=== PATIENT | male | born 1970 | race Caucasian/White ===

== ENCOUNTER 2019-01-19 09:48 | Inpatient (IN) | payer BC ==
[2019-01-19] MEDS ORDERED: Aspirin 81 MG Tab.Chew PO ONE (09:52)
[2019-01-19] MEDS ORDERED: Sodium Chloride 0.9% 2.5 ML Syringe FLUSH PRN (09:52)
[2019-01-19] MEDS ORDERED: Sodium Chloride 0.9% 10 ML Syringe FLUSH PRN (09:52)
[2019-01-19] MEDS ORDERED: Diltiazem 25 MG/5 ML SDV IVPUSH ONE ×4 (09:52→13:33)
--- NOTE | 2019-01-19 10:16 | CR ---
EXAMINATION: Portable chest radiograph. HISTORY: Shortness of breath. FINDINGS: The trachea is midline. The heart is borderline in size for technique. The cardiomediastinal silhouette is within normal limits. Mild right basilar infiltrate. No pleural effusion or pneumothorax. Osseous structures appear unremarkable. IMPRESSION: 1. Borderline cardiomegaly. 2. Mild right basilar infiltrate.
--- NOTE | 2019-01-19 10:17 | EDM.PDOC ---
ED HPI GENERAL MEDICAL PROBLEM - General Chief Complaint: Cardiovascular Problem Stated Complaint: CHEST PAIN Time Seen by Provider: 01/19/19 09:59 Source of Information: Reports: Patient History Limitations: Reports: No Limitations - History of Present Illness INITIAL COMMENTS - FREE TEXT/NARRATIVE: History of present illness: []Patient has a history of asthma and for the past 2-3 days he has feel like his asthma has worsened. Today he was going up and down stairs and felt more short of breath and it did not feel like his asthma. To clinic today and they found him to be in atrial fibrillation with a fast heart rate and sent him to the emergency room. Patient denies any chest pain, he has had fevers and a cough and his was recently diagnosed with a respiratory infection. Review of systems: As per history of present illness and below otherwise all systems reviewed and negative. Past medical history: As per history of present illness and as reviewed below otherwise noncontributory. Surgical history: As per history of present illness and as reviewed below otherwise noncontributory. Social history: No reported history of drug or alcohol abuse. Family history: As per history of present illness and as reviewed below otherwise noncontributory. Physical exam: General: Well developed, well nourished in NAD HEENT: Atraumatic, normocephalic, pupils reactive, negative for conjunctival pallor or scleral icterus, mucous membranes moist, throat clear, neck supple, nontender, trachea midline. Lungs: Clear to auscultation, breath sounds equal bilaterally, chest nontender. Heart: S1S2, irregularly irregular, negative for clicks, rubs, or JVD. No peripheral edema Abdomen: NABS, Soft, nondistended, nontender. Negative for masses or hepatosplenomegaly. Negative for costovertebral tenderness. Pelvis: Stable nontender. Genitourinary: Deferred. Rectal: Deferred. Extremities: Atraumatic, negative for cords or calf pain. Neurovascular unremarkable. Neuro: Awake, alert, oriented. Cranial nerves II through XII unremarkable. Cerebellum unremarkable. Motor and sensory unremarkable throughout. Exam nonfocal. Skin:warm and dry Diagnostics: EKG, CBC, chemistry, troponin, BNP, chest x-ray Therapeutics: Diltiazem 20 mg IV 2 boluses and diltiazem drip ED Course: Patient remained stable in A. fib Impression: Atrial fibrillation with rapid ventricular rate Prescriptions: None Plan: Admit to ICU on diltiazem drip to the hospitalist service Definitive disposition and diagnosis as appropriate pending reevaluation and review of above. - Related Data Allergies Allergy/AdvReac Type Severity Reaction Status Date / Time No Known Allergies Allergy Verified 01/19/19 09:54 Home Meds: Home Meds Aspirin 81 mg PO DAILY 10/03/15 [History] Lisinopril 40 mg PO DAILY 10/03/15 [History] Pantoprazole 40 mg PO DAILY 10/03/15 [History] amLODIPine Besylate [Amlodipine Besylate] 10 mg PO ACBREAKFAST 10/03/15 [History ] atorvaSTATin [Lipitor] 20 mg PO BEDTIME 10/03/15 [History] hydroCHLOROthiazide [Hydrochlorothiazide] 25 mg PO DAILY 10/03/15 [History] metFORMIN [Glucophage XR] 1,000 mg PO BIDMEALS 10/03/15 [History] Albuterol Sulfate [Albuterol Sulfate Hfa] 8.5 gm IH Q4H PRN 01/19/19 [History] Cetirizine [ZyrTEC] 10 mg PO DAILY 01/19/19 [History] Past Medical History HEENT History: Reports: None Cardiovascular History: Reports: High Cholesterol, Hypertension Respiratory History: Reports: Asthma, Other (See Below) Other Respiratory History: Past hx: asthma, no problems for several years. REports 10 yr history of Chewing tobacco use, current 1 can every 2-3 days Gastrointestinal History: Reports: Other (See Below) Other Gastrointestinal History: heartburn Genitourinary History: Reports: None Musculoskeletal History: Reports: Other (See Below) Other Musculoskeletal History: Current laceration Left index finger Neurological History: Reports: None Psychiatric History: Reports: None Endocrine/Metabolic History: Reports: Diabetes, Type II, Obesity/BMI 30+ Hematologic History: Reports: None Immunologic History: Reports: None Oncologic (Cancer) History: Reports: None Dermatologic History: Reports: None - Infectious Disease History Infectious Disease History: Reports: Chicken Pox - Past Surgical History Head Surgeries/Procedures: Reports: None HEENT Surgical History: Reports: None Cardiovascular Surgical History: Reports: None Respiratory Surgical History: Reports: None GI Surgical History: Reports: Hernia Repair/Other Male Surgical History: Reports: None Endocrine Surgical History: Reports: None Neurological Surgical History: Reports: None Musculoskeletal Surgical History: Reports: None Oncologic Surgical History: Reports: None Dermatological Surgical History: Reports: None Social & Family History - Family History Family Medical History: Noncontributory - Tobacco Use Smoking Status *Q: Never Smoker Second Hand Smoke Exposure: No - Caffeine Use Caffeine Use: Reports: Coffee, Soda - Recreational Drug Use Recreational Drug Use: No ED ROS GENERAL - Review of Systems Review Of Systems: ROS reveals no pertinent complaints other than HPI. ED EXAM, GENERAL - Physical Exam Exam: See Below (See history of present illness) Course - Vital Signs Last Recorded V/S: Last Vital Signs Temp 97.0 F 01/19/19 09:49 Pulse 138 H 01/19/19 12:28 Resp 18 01/19/19 12:28 BP 145/63 H 01/19/19 12:28 Pulse Ox 95 01/19/19 12:28 - Orders/Labs/Meds Orders: Active Orders 24 hr Category Date Time Status Patient Status [ADT] Stat ADT 01/19/19 11:36 Active EKG Documentation Completion [RC] STAT Care 01/19/19 09:51 Active Diltiazem [Cardizem] 100 mg Med 01/19/19 11:15 Active Sodium Chloride 0.9% [Normal Saline] 100 ml IV NOW Sodium Chloride 0.9% [Normal Saline] 1,000 ml Med 01/19/19 11:30 Active IV ASDIRECTED Sodium Chloride 0.9% [Saline Flush] Med 01/19/19 09:52 Active 10 ml FLUSH ASDIRECTED PRN Sodium Chloride 0.9% [Saline Flush] Med 01/19/19 09:52 Active 2.5 ml FLUSH ASDIRECTED PRN Saline Lock Insert [OM.PC] Stat Oth 01/19/19 09:51 Ordered Medication Orders Albuterol/Ipratropium (Duoneb 3.0-0.5 Mg/3 Ml) 3 ml NEB Q4HRRT PRN PRN Reason: Shortness Of Breath/wheezing Last Admin: 01/19/19 15:11 Dose: 3 ml Apixaban (Eliquis) 5 mg PO BID LAUREN Aspirin (Aspirin) 81 mg PO DAILY LAUREN Atorvastatin Calcium (Lipitor) 20 mg PO BEDTIME LAUREN Cetirizine HCl (Zyrtec) 10 mg PO DAILY LAUREN Furosemide (Lasix) 40 mg IVPUSH NOW ONE Stop: 01/19/19 17:18 Diltiazem HCl 100 mg/ Sodium (Chloride) 100 mls @ 5 mls/hr IV NOW ONE; Protocol Stop: 01/20/19 07:14 Last Titration: 01/19/19 13:33 Dose: 15 mg/hr, 15 mls/hr Titration: 01/19/19 12:28 Dose: 10 mg/hr, 10 mls/hr Admin: 01/19/19 11:19 Dose: 5 mg/hr, 5 mls/hr Sodium Chloride (Normal Saline) 1,000 mls @ 50 mls/hr IV ASDIRECTED LAUREN Last Admin: 01/19/19 11:22 Dose: 50 mls/hr Levofloxacin/Dextrose 750 mg/ (Premix) 150 mls @ 100 mls/hr IV Q24H LAUREN Last Admin: 01/19/19 15:26 Dose: 100 mls/hr Magnesium Sulfate 2 gm/ Premix 50 mls @ 25 mls/hr IV ONETIME ONE Stop: 01/19/19 18:49 Insulin Aspart (Novolog) 0 unit SUBCUT TIDAC [facility]; Protocol Pantoprazole Sodium (Protonix) 40 mg PO DAILY [facility] Sodium Chloride (Saline Flush) 10 ml FLUSH ASDIRECTED PRN PRN Reason: Keep Vein Open Sodium Chloride (Saline Flush) 2.5 ml FLUSH ASDIRECTED PRN PRN Reason: Keep Vein Open Labs: Laboratory Tests 01/19/19 01/19/19 01/19/19 Range/Units 09:50 09:50 09:50 WBC 6.23 (4.0-11.0) K/uL RBC 4.92 (4.50-5.90) M/uL Hgb 15.6 (13.0-17.0) g/dL Hct 45.7 (38.0-50.0) % MCV 92.9 (80.0-98.0) fL MCH 31.7 (27.0-32.0) pg MCHC 34.1 (31.0-37.0) g/dL RDW Std Deviation 46.8 (28.0-62.0) fl RDW Coeff of Jazmin 14 (11.0-15.0) % Plt Count 208 (150-400) K/uL MPV 11.20 (7.40-12.00) fL Neut % (Auto) 70.5 (48.0-80.0) % Lymph % (Auto) 14.6 L (16.0-40.0) % [place] % (Auto) 9.5 (0.0-15.0) % Eos % (Auto) 4.3 (0.0-7.0) % Baso % (Auto) 1.1 (0.0-1.5) % Neut # (Auto) 4.4 (1.4-5.7) K/uL Lymph # (Auto) 0.9 (0.6-2.4) K/uL [place] # (Auto) 0.6 (0.0-0.8) K/uL Eos # (Auto) 0.3 (0.0-0.7) K/uL Baso # (Auto) 0.1 (0.0-0.1) K/uL Nucleated RBC % 0.0 /100WBC Nucleated RBCs # 0 K/uL Sodium 139 (136-148) mmol/L Potassium 4.2 (3.5-5.1) mmol/L Chloride 101 (98-107) mmol/L Carbon Dioxide 25.3 (21.0-32.0) mmol/L BUN 11 (7.0-18.0) mg/dL Creatinine 1.1 (0.8-1.3) mg/dL Est Cr Clr Drug Dosing 83.02 mL/min Estimated GFR (MDRD) > 60.0 ml/min Glucose 189 H (74-106) mg/dL Calcium 9.4 (8.5-10.1) mg/dL Magnesium (1.8-2.4) mg/dL Total Bilirubin 1.6 H (0.2-1.0) mg/dL AST 30 (15-37) IU/L ALT 67 H (14-63) IU/L Alkaline Phosphatase 40 L (46-116) U/L Troponin I < 0.050 (0.000-0.056) ng/mL B-Natriuretic Peptide 190 H (<100) PG/ML Total Protein 7.4 (6.4-8.2) g/dL Albumin 4.2 (3.4-5.0) g/dL Globulin 3.2 (2.6-4.0) g/dL Albumin/Globulin Ratio 1.3 (0.9-1.6) TSH 3rd Generation (0.36-3.74) uIU/mL 01/19/19 Range/Units 09:50 WBC (4.0-11.0) K/uL RBC (4.50-5.90) M/uL Hgb (13.0-17.0) g/dL Hct (38.0-50.0) % MCV (80.0-98.0) fL MCH (27.0-32.0) pg MCHC (31.0-37.0) g/dL RDW Std Deviation (28.0-62.0) fl RDW Coeff of Jazmin (11.0-15.0) % Plt Count (150-400) K/uL MPV (7.40-12.00) fL Neut % (Auto) (48.0-80.0) % Lymph % (Auto) (16.0-40.0) % [place] % (Auto) (0.0-15.0) % Eos % (Auto) (0.0-7.0) % Baso % (Auto) (0.0-1.5) % Neut # (Auto) (1.4-5.7) K/uL Lymph # (Auto) (0.6-2.4) K/uL [place] # (Auto) (0.0-0.8) K/uL Eos # (Auto) (0.0-0.7) K/uL Baso # (Auto) (0.0-0.1) K/uL Nucleated RBC % /100WBC Nucleated RBCs # K/uL Sodium (136-148) mmol/L Potassium (3.5-5.1) mmol/L Chloride (98-107) mmol/L Carbon Dioxide (21.0-32.0) mmol/L BUN (7.0-18.0) mg/dL Creatinine (0.8-1.3) mg/dL Est Cr Clr Drug Dosing mL/min Estimated GFR (MDRD) ml/min Glucose (74-106) mg/dL Calcium (8.5-10.1) mg/dL Magnesium 1.7 L (1.8-2.4) mg/dL Total Bilirubin (0.2-1.0) mg/dL AST (15-37) IU/L ALT (14-63) IU/L Alkaline Phosphatase (46-116) U/L Troponin I (0.000-0.056) ng/mL B-Natriuretic Peptide (<100) PG/ML Total Protein (6.4-8.2) g/dL Albumin (3.4-5.0) g/dL Globulin (2.6-4.0) g/dL Albumin/Globulin Ratio (0.9-1.6) TSH 3rd Generation 1.68 (0.36-3.74) uIU/mL Meds: Medications Generic Name Dose Route Start Last Admin Trade Name Freq PRN Reason Stop Dose Admin Albuterol/Ipratropium 3 ml 01/19/19 14:17 01/19/19 15:11 Duoneb 3.0-0.5 Mg/3 Ml NEB 3 ml Q4HRRT PRN Administration Shortness Of Breath/wheezing Apixaban 5 mg 01/19/19 17:30 Eliquis PO BID [facility] Aspirin 81 mg 01/20/19 09:00 Aspirin PO DAILY [facility] Atorvastatin Calcium 20 mg 01/19/19 21:00 Lipitor PO BEDTIME [facility] Cetirizine HCl 10 mg 01/20/19 09:00 Zyrtec PO DAILY [facility] Furosemide 40 mg 01/19/19 17:17 Lasix IVPUSH 01/19/19 17:18 NOW ONE Diltiazem HCl 100 mg/ Sodium 100 mls @ 5 mls/hr 01/19/19 11:15 01/19/19 13:33 Chloride IV 01/20/19 07:14 15 mg/hr NOW ONE 15 mls/hr Titration Protocol 5 MG/HR Sodium Chloride 1,000 mls @ 50 mls/hr 01/19/19 11:30 01/19/19 11:22 Normal Saline IV 50 mls/hr ASDIRECTED LAUREN Administration Levofloxacin/Dextrose 750 mg/ 150 mls @ 100 mls/hr 01/19/19 14:00 01/19/19 15 :26 Premix IV 100 mls/hr Q24H LAUREN Administration Magnesium Sulfate 2 gm/ Premix 50 mls @ 25 mls/hr 01/19/19 16:50 IV 01/19/19 18:49 ONETIME ONE Insulin Aspart 0 unit 01/19/19 17:00 Novolog SUBCUT TIDAC [facility] Protocol Pantoprazole Sodium 40 mg 01/20/19 09:00 Protonix PO DAILY [facility] Sodium Chloride 10 ml 01/19/19 09:52 Saline Flush FLUSH ASDIRECTED PRN Keep Vein Open Sodium Chloride 2.5 ml 01/19/19 09:52 Saline Flush FLUSH ASDIRECTED PRN Keep Vein Open Discontinued Medications Generic Name Dose Route Start Last Admin Trade Name Freq PRN Reason Stop Dose Admin Amlodipine Besylate 10 mg 01/20/19 07:30 Norvasc PO ACBREAKFAST [facility] Aspirin 324 mg 01/19/19 09:52 01/19/19 10:00 Aspirin PO 01/19/19 09:53 324 mg ONETIME ONE Administration Diltiazem HCl 20 mg 01/19/19 09:52 01/19/19 10:00 Diltiazem IVPUSH 01/19/19 09:53 20 mg ONETIME ONE Administration Diltiazem HCl 20 mg 01/19/19 10:21 01/19/19 10:26 Diltiazem IVPUSH 01/19/19 10:22 20 mg ONETIME ONE Administration Diltiazem HCl Confirm 01/19/19 12:23 Diltiazem Administered 01/19/19 12:24 Dose 25 mg .ROUTE .STK-MED ONE Diltiazem HCl 5 mg 01/19/19 12:26 01/19/19 12:27 Diltiazem IVPUSH 01/19/19 12:27 5 mg ONETIME ONE Administration Diltiazem HCl 5 mg 01/19/19 13:33 01/19/19 13:47 Diltiazem IVPUSH 01/19/19 13:34 5 mg ONETIME ONE Administration Heparin Sodium (Porcine) 5,000 units 01/19/19 14:30 01/19/19 15:26 Heparin Sodium SUBCUT 5,000 units Q8H [facility] Administration Hydrochlorothiazide 25 mg 01/20/19 09:00 Hydrochlorothiazide PO DAILY [facility] Diltiazem HCl 125 mg/ Sodium 125 mls @ 5 mls/hr 01/19/19 11:03 Chloride IV 01/20/19 12:02 NOW ONE Protocol 5 MG/HR Lisinopril 40 mg 01/20/19 09:00 Prinivil PO DAILY [facility] Metformin HCl 1,000 mg 01/19/19 17:00 Glucophage Xr PO BIDMEALS LAUREN Departure - Departure Time of Disposition: 12:45 Disposition: Admitted As Inpatient 67 Condition: Good Clinical Impression: Atrial fibrillation with RVR - My Orders Last 24 Hours: My Active Orders 01/19/19 09:51 EKG Documentation Completion [RC] STAT Saline Lock Insert [OM.PC] Stat 01/19/19 09:52 Sodium Chloride 0.9% [Saline Flush] 10 ml FLUSH ASDIRECTED PRN Sodium Chloride 0.9% [Saline Flush] 2.5 ml FLUSH ASDIRECTED PRN 01/19/19 11:15 Diltiazem [Cardizem] 100 mg Sodium Chloride 0.9% [Normal Saline] 100 ml IV NOW 01/19/19 11:30 Sodium Chloride 0.9% [Normal Saline] 1,000 ml IV ASDIRECTED 01/19/19 11:36 Patient Status [ADT] Stat - Assessment/Plan Last 24 Hours: My Active Orders 01/19/19 09:51 EKG Documentation Completion [RC] STAT Saline Lock Insert [OM.PC] Stat 01/19/19 09:52 Sodium Chloride 0.9% [Saline Flush] 10 ml FLUSH ASDIRECTED PRN Sodium Chloride 0.9% [Saline Flush] 2.5 ml FLUSH ASDIRECTED PRN 01/19/19 11:15 Diltiazem [Cardizem] 100 mg Sodium Chloride 0.9% [Normal Saline] 100 ml IV NOW 01/19/19 11:30 Sodium Chloride 0.9% [Normal Saline] 1,000 ml IV ASDIRECTED 01/19/19 11:36 Patient Status [ADT] Stat
[2019-01-19 10:38] LABS: CHLORIDE,CL 101 mmol/L (98-107); SODIUM,NA 139 mmol/L (136-148)
[2019-01-19] MEDS ORDERED: Diltiazem 125 MG in Sodium Chloride 0.9% 100 ML IV ONE (11:03)
[2019-01-19] MEDS ORDERED: Diltiazem 100 MG in Sodium Chloride 0.9% 100 ML IV ONE (11:15)
[2019-01-19] MEDS ORDERED: Sodium Chloride 0.9% 1,000 ML IV SCH (11:30)
[2019-01-19] MEDS ORDERED: Diltiazem 25 MG/5 ML SDV ONE (12:23)
[2019-01-19] MEDS ORDERED: Heparin Sodium 5,000 Units/ML Vial SUBCUT SCH (14:30)
--- NOTE | 2019-01-19 14:42 | PCM.HP ---
H&P History of Present Illness - General Date of Service: 01/19/19 Admit Problem/Dx: Admission Diagnosis/Problem Admission Diagnosis/Problem Atrial fibrillation with rapid ventricular response Source of Information: Patient History Limitations: Reports: No Limitations - History of Present Illness Initial Comments - Free Text/Narative: 48M history of asthma, HTN, HLD, T2DM that presented to the ER with a chief complaint of shortness of breath. Patient tells me that for the past 3-4 weeks, he's been dealing with what he thought was sinus congestion. This slowly evolved over the past week into him thinking his asthma was acting up. He went to a walk in clinic today earlier when he was found to have an elevated heart rate and sent to the ER. He was found to be in A. Fib w/ RVR. He has no history of this. He denies chest pain or palpitations. He endorses a dry cough. No fever. No history of thyroid or drug abuse. He denies tobacco use. - Related Data Allergies/Adverse Reactions: Allergies Allergy/AdvReac Type Severity Reaction Status Date / Time No Known Allergies Allergy Verified 01/19/19 09:54 Home Medications: Home Meds Aspirin 81 mg PO DAILY 10/03/15 [History] Lisinopril 40 mg PO DAILY 10/03/15 [History] Pantoprazole 40 mg PO DAILY 10/03/15 [History] amLODIPine Besylate [Amlodipine Besylate] 10 mg PO ACBREAKFAST 10/03/15 [History ] atorvaSTATin [Lipitor] 20 mg PO BEDTIME 10/03/15 [History] hydroCHLOROthiazide [Hydrochlorothiazide] 25 mg PO DAILY 10/03/15 [History] metFORMIN [Glucophage XR] 1,000 mg PO BIDMEALS 10/03/15 [History] Albuterol Sulfate [Albuterol Sulfate Hfa] 8.5 gm IH Q4H PRN 01/19/19 [History] Cetirizine [ZyrTEC] 10 mg PO DAILY 01/19/19 [History] Past Medical History HEENT History: Reports: Impaired Vision Cardiovascular History: Reports: High Cholesterol, Hypertension Respiratory History: Reports: Asthma, Other (See Below) Other Respiratory History: Past hx: asthma, no problems for several years. REports 10 yr history of Chewing tobacco use, current 1 can every 2-3 days Gastrointestinal History: Reports: Other (See Below) Other Gastrointestinal History: heartburn Genitourinary History: Reports: None Musculoskeletal History: Reports: Other (See Below) Other Musculoskeletal History: left index finger flexor tendon sever and repair Neurological History: Reports: None Psychiatric History: Reports: None Endocrine/Metabolic History: Reports: Diabetes, Type II, Obesity/BMI 30+ Hematologic History: Reports: None Immunologic History: Reports: None Oncologic (Cancer) History: Reports: None Dermatologic History: Reports: None - Infectious Disease History Infectious Disease History: Reports: Chicken Pox - Past Surgical History Head Surgeries/Procedures: Reports: None Cardiovascular Surgical History: Reports: None Respiratory Surgical History: Reports: None GI Surgical History: Reports: Hernia Repair/Other Male Surgical History: Reports: None Endocrine Surgical History: Reports: None Neurological Surgical History: Reports: None Musculoskeletal Surgical History: Reports: None Oncologic Surgical History: Reports: None Dermatological Surgical History: Reports: None Social & Family History - Family History Family Medical History: Noncontributory - Tobacco Use Smoking Status *Q: Light Tobacco Smoker Years of Tobacco use: 10 Packs/Tins Daily: 0.5 Used Tobacco, but Quit: No Second Hand Smoke Exposure: No - Caffeine Use Caffeine Use: Reports: Coffee Caffeine Use Comment: Coffee or pop - Recreational Drug Use Recreational Drug Use: No H&P Review of Systems - Review of Systems: Review Of Systems: ROS reveals no pertinent complaints other than HPI. Exam - Exam Exam: See Below - Vital Signs Vital Signs: Last Vital Signs Temp 36.1 C 01/19/19 09:49 Pulse 138 H 01/19/19 12:28 Resp 18 01/19/19 12:28 BP 145/63 H 01/19/19 12:28 Pulse Ox 95 01/19/19 12:28 Weight: 117.208 kg - Exam General: Alert, Oriented, 4 HEENT: PERRLA, Hearing Intact, Mucosa Moist & [place], Nares Patent, Normal Nasal Septum, Posterior Pharynx Clear, Conjunctiva Clear, EOMI, EACs Clear, TMs Clear Neck: Supple, Trachea Midline, 2 Lungs: Other (mild expiratory wheezing in L lung) Cardiovascular: Irregular Rhythm, Tachycardia GI/Abdominal Exam: Normal Bowel Sounds, Soft, Non-Tender, No Organomegaly, No Distention, No Abnormal Bruit, No Mass, Pelvis Stable Extremities: Normal Inspection, Normal Range of Motion, Non-Tender, Normal Capillary Refill, Other (trace pedal edema) Peripheral Pulses: 2+: Dorsalis Pedis (L), Dorsalis Pedis (R) Skin: Warm DTR: 2+: Achilles (L), Achilles (R) Psychiatric: Alert, Normal Affect, Normal Mood - Patient Data Lab Results Last 24 hrs: Laboratory Results - last 24 hr 01/19/19 01/19/19 01/19/19 Range/Units 09:50 09:50 09:50 WBC 6.23 (4.0-11.0) K/uL RBC 4.92 (4.50-5.90) M/uL Hgb 15.6 (13.0-17.0) g/dL Hct 45.7 (38.0-50.0) % MCV 92.9 (80.0-98.0) fL MCH 31.7 (27.0-32.0) pg MCHC 34.1 (31.0-37.0) g/dL RDW Std Deviation 46.8 (28.0-62.0) fl RDW Coeff of Jazmin 14 (11.0-15.0) % Plt Count 208 (150-400) K/uL MPV 11.20 (7.40-12.00) fL Neut % (Auto) 70.5 (48.0-80.0) % Lymph % (Auto) 14.6 L (16.0-40.0) % [place] % (Auto) 9.5 (0.0-15.0) % Eos % (Auto) 4.3 (0.0-7.0) % Baso % (Auto) 1.1 (0.0-1.5) % Neut # (Auto) 4.4 (1.4-5.7) K/uL Lymph # (Auto) 0.9 (0.6-2.4) K/uL [place] # (Auto) 0.6 (0.0-0.8) K/uL Eos # (Auto) 0.3 (0.0-0.7) K/uL Baso # (Auto) 0.1 (0.0-0.1) K/uL Nucleated RBC % 0.0 /100WBC Nucleated RBCs # 0 K/uL Sodium 139 (136-148) mmol/L Potassium 4.2 (3.5-5.1) mmol/L Chloride 101 (98-107) mmol/L Carbon Dioxide 25.3 (21.0-32.0) mmol/L BUN 11 (7.0-18.0) mg/dL Creatinine 1.1 (0.8-1.3) mg/dL Est Cr Clr Drug Dosing 83.02 mL/min Estimated GFR (MDRD) > 60.0 ml/min Glucose 189 H (74-106) mg/dL Calcium 9.4 (8.5-10.1) mg/dL Total Bilirubin 1.6 H (0.2-1.0) mg/dL AST 30 (15-37) IU/L ALT 67 H (14-63) IU/L Alkaline Phosphatase 40 L (46-116) U/L Troponin I < 0.050 (0.000-0.056) ng/mL B-Natriuretic Peptide 190 H (<100) PG/ML Total Protein 7.4 (6.4-8.2) g/dL Albumin 4.2 (3.4-5.0) g/dL Globulin 3.2 (2.6-4.0) g/dL Albumin/Globulin Ratio 1.3 (0.9-1.6) Result Diagrams: 01/19/19 09:50 01/19/19 09:50 Problem List Initiated/Reviewed/Updated: Yes Orders Last 24hrs: Active Orders 24 hr Category Date Time Status Patient Status [ADT] Stat ADT 01/19/19 11:36 Active Cardiac Monitoring [RC] CONTINUOUS Care 01/19/19 14:18 Active EKG Documentation Completion [RC] STAT Care 01/19/19 09:51 Active Notify Provider Consults [RC] ASDIRECTED Care 01/19/19 14:31 Ordered Oxygen Therapy [RC] PRN Care 01/19/19 14:17 Active RT Aerosol Therapy [RC] ASDIRECTED Care 01/19/19 14:19 Active VTE/DVT Education [RC] PER UNIT ROUTINE Care 01/19/19 14:17 Active Vital Signs [RC] Q4H Care 01/19/19 14:17 Active Consult to Physician [CONS] Routine Cons 01/19/19 14:31 Ordered Heart Healthy Diet [DIET] Diet 01/19/19 Dinner Active Echo Comp wo Cont [US] Urgent Exams 01/19/19 14:19 Ordered BASIC METABOLIC PANEL,BMP [CHEM] AM Lab 01/20/19 05:11 Ordered MAGNESIUM [CHEM] Stat Lab 01/19/19 09:50 Received TSH [CHEM] Stat Lab 01/19/19 09:50 Received Albuterol/Ipratropium [DuoNeb 3.0-0.5 MG/3 ML] Med 01/19/19 14:17 Active 3 ml NEB Q4HRRT PRN Aspirin Med 01/20/19 09:00 Ordered 81 mg PO DAILY Cetirizine [ZyrTEC] Med 01/20/19 09:00 Ordered 10 mg PO DAILY Diltiazem [Cardizem] 100 mg Med 01/19/19 11:15 Active Sodium Chloride 0.9% [Normal Saline] 100 ml IV NOW Heparin Sodium Med 01/19/19 14:30 Active 5,000 units SUBCUT Q8H Insulin Aspart [NovoLOG] Med 01/19/19 17:00 Ordered See Protocol SUBCUT TIDAC Levofloxacin/Dextrose 5%-Water [Levaquin in D5W 750 MG/ Med 01/19/19 14:00 Active 150 ML] 750 mg Premix Bag 1 bag IV Q24H Lisinopril [Lisinopril] Med 01/20/19 09:00 Ordered 40 mg PO DAILY Pantoprazole [Pantoprazole] Med 01/20/19 09:00 Ordered 40 mg PO DAILY Sodium Chloride 0.9% [Normal Saline] 1,000 ml Med 01/19/19 11:30 Active IV ASDIRECTED Sodium Chloride 0.9% [Saline Flush] Med 01/19/19 09:52 Active 10 ml FLUSH ASDIRECTED PRN Sodium Chloride 0.9% [Saline Flush] Med 01/19/19 09:52 Active 2.5 ml FLUSH ASDIRECTED PRN amLODIPine Besylate Med 01/20/19 07:30 Ordered 10 mg PO ACBREAKFAST atorvaSTATin [Lipitor] Med 01/19/19 21:00 Ordered 20 mg PO BEDTIME hydroCHLOROthiazide Med 01/20/19 09:00 Ordered 25 mg PO DAILY Saline Lock Insert [OM.PC] Stat Oth 01/19/19 09:51 Ordered Resuscitation Status Routine Resus Stat 01/19/19 14:17 Ordered Medication Orders Albuterol/Ipratropium (Duoneb 3.0-0.5 Mg/3 Ml) 3 ml NEB Q4HRRT PRN PRN Reason: Shortness Of Breath/wheezing Aspirin (Aspirin) 81 mg PO DAILY [facility] Atorvastatin Calcium (Lipitor) 20 mg PO BEDTIME [facility] Cetirizine HCl (Zyrtec) 10 mg PO DAILY [facility] Heparin Sodium (Porcine) (Heparin Sodium) 5,000 units SUBCUT Q8H [facility] Hydrochlorothiazide (Hydrochlorothiazide) 25 mg PO DAILY [facility] Diltiazem HCl 100 mg/ Sodium (Chloride) 100 mls @ 5 mls/hr IV NOW ONE; Protocol Stop: 01/20/19 07:14 Last Titration: 01/19/19 13:33 Dose: 15 mg/hr, 15 mls/hr Titration: 01/19/19 12:28 Dose: 10 mg/hr, 10 mls/hr Admin: 01/19/19 11:19 Dose: 5 mg/hr, 5 mls/hr Sodium Chloride (Normal Saline) 1,000 mls @ 50 mls/hr IV ASDIRECTED [facility] Last Admin: 01/19/19 11:22 Dose: 50 mls/hr Levofloxacin/Dextrose 750 mg/ (Premix) 150 mls @ 100 mls/hr IV Q24H [facility] Insulin Aspart (Novolog) 0 unit SUBCUT TIDAC [facility]; Protocol Non-Formulary Medication (Amlodipine Besylate) 10 mg PO ACBREAKFAST [facility] Non-Formulary Medication (Lisinopril [Lisinopril]) 40 mg PO DAILY [facility] Non-Formulary Medication (Pantoprazole [Pantoprazole]) 40 mg PO DAILY [facility] Sodium Chloride (Saline Flush) 10 ml FLUSH ASDIRECTED PRN PRN Reason: Keep Vein Open Sodium Chloride (Saline Flush) 2.5 ml FLUSH ASDIRECTED PRN PRN Reason: Keep Vein Open Assessment/Plan Comment:: Assessment: #1. Atrial fibrillation w/ RVR #2. R lung pneumonia (community acquired) #3. Asthma exacerbation #4. Elevated BNP #4. History of asthma, HTN, T2DM, HLD Plan: #1. Admit as inpatient to ICU #2. Cardiac tele #3. Heparin for DVT prophylaxis #4. Cardiac diet #5. TSH, magnesium. BMP tomorrow AM #6. Cardizem drip #7. Restart home meds #8. Low dose insulin sliding scale with TIDAC accucheck #9. IV levaquin #10. Echo #11. PRN duoneb q4h #12. Consult cardiology
[2019-01-19] MEDS: Albuterol/Ipratropium 3.0-0.5 MG/3 ML Neb Soln NEB PRN ×2 (15:11→22:11)
[2019-01-19] MEDS: Levofloxacin/Dextrose 5%-Water 750 MG in Premix Bag 1 BAG IV SCH (15:26)
[2019-01-19] MEDS ORDERED: Magnesium Sulfate/Water 2 GM in Premix Bag 1 BAG IV ONE (16:50)
[2019-01-19] MEDS ORDERED: metFORMIN 500 MG Tab.ER PO SCH (17:00)
[2019-01-19] MEDS ORDERED: Furosemide 40 MG/4 ML VIAL IVPUSH ONE (17:17)
[2019-01-19] MEDS: Apixaban 5 MG Tab PO SCH (17:32)
[2019-01-19] MEDS: Insulin Aspart 100 Units/ML 3 ML Pen SUBCUT SCH (17:33)
[2019-01-19] MEDS ORDERED: Diltiazem 125 MG in Sodium Chloride 0.9% 100 ML IV SCH (18:15)
[2019-01-19] MEDS ORDERED: Acetaminophen 325 MG Tab PO PRN (18:48)
[2019-01-19] MEDS: atorvaSTATin 20 MG Tab PO SCH (20:51)
[2019-01-20] MEDS ORDERED: Diltiazem 100 MG in Sodium Chloride 0.9% 100 ML IV SCH (00:45)
[2019-01-20 05:32] LABS: CHLORIDE,CL 101 mmol/L (98-107); SODIUM,NA 138 mmol/L (136-148)
[2019-01-20] MEDS ORDERED: amLODIPine 5 MG Tab PO SCH (07:30)
[2019-01-20] MEDS: Insulin Aspart 100 Units/ML 3 ML Pen SUBCUT SCH ×3 (07:57→20:36)
[2019-01-20] MEDS: Pantoprazole 40 MG Tab.CR PO SCH (08:14)
[2019-01-20] MEDS: Apixaban 5 MG Tab PO SCH ×2 (08:14→21:21)
[2019-01-20] MEDS: Cetirizine 10 MG Tab PO SCH (08:14)
[2019-01-20] MEDS: Albuterol/Ipratropium 3.0-0.5 MG/3 ML Neb Soln NEB PRN ×3 (08:31→23:33)
[2019-01-20] MEDS ORDERED: Hydrochlorothiazide 25 MG Tab PO SCH (09:00)
[2019-01-20] MEDS ORDERED: Lisinopril 10 MG Tab PO SCH (09:00)
[2019-01-20] MEDS ORDERED: Magnesium Sulfate/Water 2 GM in Premix Bag 1 BAG IV ONE (10:20)
[2019-01-20] MEDS: Metoprolol Tartrate 50 MG Tab PO SCH ×2 (10:22→21:21)
[2019-01-20] MEDS: Aspirin 81 MG Tab.Chew PO SCH (10:22)
--- NOTE | 2019-01-20 12:10 | PCM.PN ---
- General Info Date of Service: 01/20/19 Subjective Update: Had no complaints over night. Denies palpitations or chest pain, shortness of breath. Was seen by cardiology yesterday. - Review of Systems General: Reports: Other (see hpi) - Patient Data Vitals - Most Recent: Last Vital Signs Temp 35.9 C 01/20/19 08:00 Pulse 107 H 01/20/19 11:00 Resp 21 H 01/20/19 11:00 BP 120/88 01/20/19 11:00 Pulse Ox 95 01/20/19 11:00 Weight - Most Recent: 114.362 kg I&O - Last 24 Hours: Intake & Output 01/19/19 01/20/19 01/20/19 22:59 06:59 14:59 Intake Total 340 761 Output Total 500 1300 Balance -160 -539 Lab Results Last 24 Hours: Laboratory Results - last 24 hr 01/19/19 01/19/19 01/19/19 Range/Units 09:50 17:26 18:04 D-Dimer, Quantitative 0.65 H (0.0-0.50) mg/L FEU Sodium (136-148) mmol/L Potassium (3.5-5.1) mmol/L Chloride (98-107) mmol/L Carbon Dioxide (21.0-32.0) mmol/L BUN (7.0-18.0) mg/dL Creatinine (0.8-1.3) mg/dL Est Cr Clr Drug Dosing mL/min Estimated GFR (MDRD) ml/min Glucose (74-106) mg/dL POC Glucose 129 H (60-110) mg/dL Hemoglobin A1c (4.5-6.2) % Calcium (8.5-10.1) mg/dL Magnesium 1.7 L (1.8-2.4) mg/dL Triglycerides (0-200) mg/dL Cholesterol (50-200) mg/dL LDL Cholesterol, Calc (60-180) mg/dL VLDL Cholesterol (5-55) mg/dL HDL Cholesterol (40-60) mg/dL Cholesterol/HDL Ratio (3.3-6.0) TSH 3rd Generation 1.68 (0.36-3.74) uIU/mL 01/20/19 01/20/19 01/20/19 Range/Units 05:02 05:02 07:22 D-Dimer, Quantitative (0.0-0.50) mg/L FEU Sodium 138 (136-148) mmol/L Potassium 3.9 (3.5-5.1) mmol/L Chloride 101 (98-107) mmol/L Carbon Dioxide 26.4 (21.0-32.0) mmol/L BUN 12 (7.0-18.0) mg/dL Creatinine 1.0 (0.8-1.3) mg/dL Est Cr Clr Drug Dosing 88.35 mL/min Estimated GFR (MDRD) > 60.0 ml/min Glucose 217 H (74-106) mg/dL POC Glucose 189 H (60-110) mg/dL Hemoglobin A1c 7.0 H (4.5-6.2) % Calcium 8.6 (8.5-10.1) mg/dL Magnesium 1.8 (1.8-2.4) mg/dL Triglycerides 71 (0-200) mg/dL Cholesterol 122 (50-200) mg/dL LDL Cholesterol, Calc 66 (60-180) mg/dL VLDL Cholesterol 14 (5-55) mg/dL HDL Cholesterol 42 (40-60) mg/dL Cholesterol/HDL Ratio 2.9 L (3.3-6.0) TSH 3rd Generation (0.36-3.74) uIU/mL 01/20/19 Range/Units 11:47 D-Dimer, Quantitative (0.0-0.50) mg/L FEU Sodium (136-148) mmol/L Potassium (3.5-5.1) mmol/L Chloride (98-107) mmol/L Carbon Dioxide (21.0-32.0) mmol/L BUN (7.0-18.0) mg/dL Creatinine (0.8-1.3) mg/dL Est Cr Clr Drug Dosing mL/min Estimated GFR (MDRD) ml/min Glucose (74-106) mg/dL POC Glucose 161 H (60-110) mg/dL Hemoglobin A1c (4.5-6.2) % Calcium (8.5-10.1) mg/dL Magnesium (1.8-2.4) mg/dL Triglycerides (0-200) mg/dL Cholesterol (50-200) mg/dL LDL Cholesterol, Calc (60-180) mg/dL VLDL Cholesterol (5-55) mg/dL HDL Cholesterol (40-60) mg/dL Cholesterol/HDL Ratio (3.3-6.0) TSH 3rd Generation (0.36-3.74) uIU/mL Med Orders - Current: Current Medications Acetaminophen (Tylenol) 650 mg PO Q4H PRN PRN Reason: Pain Last Admin: 01/19/19 20:51 Dose: 650 mg Albuterol/Ipratropium (Duoneb 3.0-0.5 Mg/3 Ml) 3 ml NEB Q4HRRT PRN PRN Reason: Shortness Of Breath/wheezing Last Admin: 01/20/19 08:31 Dose: 3 ml Apixaban (Eliquis) 5 mg PO BID [facility] Last Admin: 01/20/19 08:14 Dose: 5 mg Aspirin (Aspirin) 81 mg PO DAILY [facility] Last Admin: 01/20/19 10:22 Dose: 81 mg Atorvastatin Calcium (Lipitor) 20 mg PO BEDTIME [facility] Last Admin: 01/19/19 20:51 Dose: 20 mg Cetirizine HCl (Zyrtec) 10 mg PO DAILY [facility] Last Admin: 01/20/19 08:14 Dose: 10 mg Sodium Chloride (Normal Saline) 1,000 mls @ 50 mls/hr IV ASDIRECTED [facility] Last Admin: 01/19/19 11:22 Dose: 50 mls/hr Levofloxacin/Dextrose 750 mg/ (Premix) 150 mls @ 100 mls/hr IV Q24H [facility] Last Admin: 01/19/19 15:26 Dose: 100 mls/hr Diltiazem HCl 100 mg/ Sodium (Chloride) 100 mls @ 5 mls/hr IV TITRATE [facility]; Protocol Last Titration: 01/20/19 04:55 Dose: 10 mg/hr, 10 mls/hr Magnesium Sulfate 2 gm/ Premix 50 mls @ 25 mls/hr IV ONETIME ONE Stop: 01/20/19 12:19 Last Admin: 01/20/19 11:04 Dose: 25 mls/hr Insulin Aspart (Novolog) 0 unit SUBCUT TIDAC [facility]; Protocol Last Admin: 01/20/19 07:57 Dose: 1 unit Metoprolol Tartrate (Lopressor) 50 mg PO Q12H [facility] Last Admin: 01/20/19 10:22 Dose: 50 mg Pantoprazole Sodium (Protonix) 40 mg PO DAILY [facility] Last Admin: 01/20/19 08:14 Dose: 40 mg Sodium Chloride (Saline Flush) 10 ml FLUSH ASDIRECTED PRN PRN Reason: Keep Vein Open Sodium Chloride (Saline Flush) 2.5 ml FLUSH ASDIRECTED PRN PRN Reason: Keep Vein Open Discontinued Medications Amlodipine Besylate (Norvasc) 10 mg PO ACBREAKFAST [facility] Aspirin (Aspirin) 324 mg PO ONETIME ONE Stop: 01/19/19 09:53 Last Admin: 01/19/19 10:00 Dose: 324 mg Diltiazem HCl (Diltiazem) 20 mg IVPUSH ONETIME ONE Stop: 01/19/19 09:53 Last Admin: 01/19/19 10:00 Dose: 20 mg Diltiazem HCl (Diltiazem) 20 mg IVPUSH ONETIME ONE Stop: 01/19/19 10:22 Last Admin: 01/19/19 10:26 Dose: 20 mg Diltiazem HCl (Diltiazem) Confirm Administered Dose 25 mg .ROUTE .STK-MED ONE Stop: 01/19/19 12:24 Last Admin: 01/19/19 17:31 Dose: Not Given Diltiazem HCl (Diltiazem) 5 mg IVPUSH ONETIME ONE Stop: 01/19/19 12:27 Last Admin: 01/19/19 12:27 Dose: 5 mg Diltiazem HCl (Diltiazem) 5 mg IVPUSH ONETIME ONE Stop: 01/19/19 13:34 Last Admin: 01/19/19 13:47 Dose: 5 mg Furosemide (Lasix) 40 mg IVPUSH NOW ONE Stop: 01/19/19 17:18 Last Admin: 01/19/19 17:32 Dose: 40 mg Heparin Sodium (Porcine) (Heparin Sodium) 5,000 units SUBCUT Q8H [facility] Last Admin: 01/19/19 15:26 Dose: 5,000 units Hydrochlorothiazide (Hydrochlorothiazide) 25 mg PO DAILY [facility] Diltiazem HCl 125 mg/ Sodium (Chloride) 125 mls @ 5 mls/hr IV NOW ONE; Protocol Stop: 01/20/19 12:02 Last Admin: 01/19/19 17:31 Dose: Not Given Diltiazem HCl 100 mg/ Sodium (Chloride) 100 mls @ 5 mls/hr IV NOW ONE; Protocol Stop: 01/20/19 07:14 Last Titration: 01/19/19 13:33 Dose: 15 mg/hr, 15 mls/hr Magnesium Sulfate 2 gm/ Premix 50 mls @ 25 mls/hr IV ONETIME ONE Stop: 01/19/19 18:49 Last Admin: 01/19/19 17:33 Dose: 25 mls/hr Diltiazem HCl 125 mg/ Sodium (Chloride) 125 mls @ 15 mls/hr IV CONTINUOUS [facility]; Protocol Last Titration: 01/20/19 00:11 Dose: 10 mg/hr, 10 mls/hr Lisinopril (Prinivil) 40 mg PO DAILY [facility] Metformin HCl (Glucophage Xr) 1,000 mg PO BIDMEALS [facility] - Exam General: Alert, Oriented HEENT: Pupils Equal, Pupils Reactive, EOMI, Mucous Membr. Moist/[place] Neck: Supple Lungs: Clear to Auscultation, Normal Respiratory Effort Cardiovascular: Irregular Rhythm, Tachycardia Back Exam: Normal Inspection Extremities: Normal Inspection, No Pedal Edema - Problem List Review Problem List Initiated/Reviewed/Updated: Yes - My Orders Last 24 Hours: My Active Orders 01/19/19 14:00 Levofloxacin/Dextrose 5%-Water [Levaquin in D5W 750 MG/150 ML] 750 mg Premix Bag 1 bag IV Q24H 01/19/19 14:17 Oxygen Therapy [RC] PRN VTE/DVT Education [RC] PER UNIT ROUTINE Vital Signs [RC] Q1H Albuterol/Ipratropium [DuoNeb 3.0-0.5 MG/3 ML] 3 ml NEB Q4HRRT PRN Resuscitation Status Routine 01/19/19 14:18 Cardiac Monitoring [RC] Q8H 01/19/19 14:19 RT Aerosol Therapy [RC] ASDIRECTED Echo Comp wo Cont [US] Urgent 01/19/19 14:31 Notify Provider Consults [RC] ASDIRECTED Consult to Physician [CONS] Routine 01/19/19 17:00 Insulin Aspart [NovoLOG] See Protocol SUBCUT TIDAC 01/19/19 18:48 Acetaminophen [Tylenol] 650 mg PO Q4H PRN 01/19/19 21:00 atorvaSTATin [Lipitor] 20 mg PO BEDTIME 01/19/19 Dinner Heart Healthy Diet [DIET] 01/20/19 09:00 Aspirin 81 mg PO DAILY Cetirizine [ZyrTEC] 10 mg PO DAILY Pantoprazole [ProTONIX] 40 mg PO DAILY 01/20/19 10:20 Magnesium Sulfate/Water [Magnesium Sulfate in Water Premix] 2 gm Premix Bag 1 bag IV ONETIME - Plan Plan:: Assessment: #1. Atrial fibrillation w/ RVR #2. R lung pneumonia (community acquired) #3. Asthma exacerbation #4. Elevated BNP #5. Elevated D-dimer #6. History of asthma, HTN, T2DM, HLD Plan: #1. Echocardiogram shows CHFef 20-25%. Likely lower than true EF secondary to active RVR. I recommend repeat echo as outpatient once stable #2. Continue cardizem drip #3. Start Metoprolol 50mg PO q12h #4. Likelihood of PE is low due to lack of symptoms, patient however has already been started on Eliquis.
[2019-01-20] MEDS: Levofloxacin/Dextrose 5%-Water 750 MG in Premix Bag 1 BAG IV SCH (13:15)
[2019-01-20] MEDS ORDERED: Furosemide 40 MG/4 ML VIAL IVPUSH ONE (17:48)
[2019-01-20] MEDS ORDERED: Iopamidol 755 MG/ML 500 ML Multipack Bottle IVPUSH ONE (19:23)
[2019-01-20] MEDS: Digoxin 500 MCG/2 ML Amp IVPUSH SCH ×4 (19:43→23:27)
--- NOTE | 2019-01-20 20:17 | CT ---
INDICATION: Elevated D-dimer TECHNIQUE: CT chest pulmonary PE protocol acquired with 72 cc Isovue 370 IV contrast. COMPARISON: None FINDINGS: Cardiovascular structures: Normal vascular enhancement of the pulmonary arteries, no sign of pulmonary embolism. Cardiomegaly. Coronary artery calcifications. No sign of aneurysm in the thoracic aorta. Mediastinum and giovanny: There are moderate amount of shotty lymph nodes in the superior mediastinum. These measure up to 9 mm in diameter. Lungs: 4 mm ground-glass pulmonary nodule right upper lobe image 103 series 501. 3 mm ground-glass nodule right upper lobe image 152 series 501. Consolidation versus atelectasis right lower lobe. Peribronchial thickening in the right lower lobe. Pleura and pericardium: Small right pleural effusion. Trace pericardial effusion. Chest wall and axilla: No mass or adenopathy. Upper abdomen: Questionable mild fat stranding around the pancreas. Shotty lymph nodes in the upper abdomen. Bones: No significant findings. IMPRESSION: No pulmonary embolus. Atelectasis versus consolidation in the right lower lobe. Small right pleural effusion. Peribronchial thickening in the right lower lobe. Questionable mild fat stranding around the pancreas. Correlate with presence of abdominal pain or elevated lipase. Moderate amount of shotty lymph nodes in the superior mediastinum. Consider follow-up CT. Two ground-glass nodules in the right upper lobe. Follow-up per Fleischner society guidelines recommended, as listed below. Cardiomegaly with coronary artery disease. Please note that all CT scans at this facility use dose modulation, iterative reconstruction, and/or weight-based dosing when appropriate to reduce radiation dose to as low as reasonably achievable. Dictated by Kristy Gallardo MD @ Jan 20 2019 8:15PM Signed by Dr. Kristy Gallardo @ Jan 20 2019 8:15PM
[2019-01-20] MEDS: atorvaSTATin 20 MG Tab PO SCH (21:21)
[2019-01-20] MEDS ORDERED: Polyethylene Glycol 3350 Powder 17 GM Packet PO ONE (22:33)
[2019-01-21 05:32] LABS: CHLORIDE,CL 102 mmol/L (98-107); SODIUM,NA 138 mmol/L (136-148)
--- NOTE | 2019-01-21 07:43 | PCM.DCSUM1 ---
Discharge Summary - Hospital Course Free Text/Narrative:: The patient was admitted secondary to Atrial fibrillation w the patient was admitted secondary to atrial fibrillation with RVR. Diagnosis: Stroke: No - Discharge Data Discharge Date: 01/21/19 Discharge Disposition: Home, Self-Care 01 Condition: Good - Discharge Diagnosis/Problem(s) (1) Heart failure, systolic, due to idiopathic cardiomyopathy SNOMED Code(s): 1603920 ICD Code: I50.20 - UNSPECIFIED SYSTOLIC (CONGESTIVE) HEART FAILURE; I42.9 - CARDIOMYOPATHY, UNSPECIFIED Status: Acute Priority: High (2) Atrial fibrillation with RVR SNOMED Code(s): 301200049090560 ICD Code: I48.91 - UNSPECIFIED ATRIAL FIBRILLATION Status: Acute Priority : High (3) Diabetes type 2, controlled SNOMED Code(s): 51713041, 409744876 ICD Code: E11.9 - TYPE 2 DIABETES MELLITUS WITHOUT COMPLICATIONS Status: Chronic Priority: High Qualifiers: Diabetes mellitus fdc insulin use: without manager long term care use Diabetes mellitus complication status: without complication Qualified Code(s): E11.9 - Type 2 diabetes mellitus without complications - Patient Summary/Data Consults: Consultations 01/19/19 14:31 Consult to Physician [CONS] Routine Hospital Course: The patient is a 48-year-old gentleman was admitted through the emergency department on January 19, 2019 out of concern for shortness of breath which turned out to be atrial fibrillation with RVR. The patient has a history of asthma, hypertension, hyperlipidemia and type 2 diabetes mellitus. The patient was initially thinking that his that his asthma have been contributing to his shortness of breath. In the emergency department the patient's initial pulse rate was around 140 bpm. The patient had been started on Cardizem drip. The patient also had been evaluated by cardiology and had been recommended to be started on Cardizem and metoprolol. The patient also had been started on Eliquis for atrial fibrillation for thrombosis control. The patient was advised of the risks benefits and alternatives of the use of Eliquis. The patient had been kept on a diabetic diet and his blood sugar showed good control. His hemoglobin A1c was noted to be at 7.0%. The patient also had been recommended to continue with his diet as tolerated. Upon consultation with cardiology his 2- D echocardiogram which showed depressed ejection fraction. The patient's 2-D echo had indicated that his ejection fraction was low in the 30-35%. He had been recommended to follow-up with the patient care nursing assistant as an outpatient. He is also been recommended to have a PFT and sleep study as an outpatient. Because of the patient's new onset atrial fibrillation he had been started on Eliquis 5 mg by mouth daily. The patient also had been started on Eliquis 5 mg by mouth twice a day, diltiazem 120 mg by mouth daily, metoprolol tartrate 50 mg by mouth every 12 hours to help control his atrial fibrillation. He was also to continue his home medications which had included lisinopril, Protonix, atorvastatin, hydrochlorothiazide, metformin and his inhalers. The patient otherwise had been tolerating his diet he's been recommended continue with a heart healthy/ADA diet. He is also to have activity as tolerated. The patient had been recommended to follow-up with his primary care physician as well as cardiology. The patient has been hemodynamically stable with his atrial fibrillation rate controlled and he felt good enough to go home today. He has been discharged from acute hospitalization with the recommendations listed above. - Patient Instructions Diet: Heart Healthy Diet, Diabetic Diet Activity: As Tolerated Driving: May Drive Today Notify Provider of: Increased Pain - Discharge Plan *PRESCRIPTION DRUG MONITORING PROGRAM REVIEWED*: No *COPY OF PRESCRIPTION DRUG MONITORING REPORT IN PATIENT JENNIFER: No Prescriptions/Med Rec: Albuterol Sulfate [Albuterol Sulfate Hfa] 8.5 gm IH Q4H PRN #2 hfa.aer.ad PRN Reason: Shortness Of Breath Albuterol/Ipratropium [DuoNeb 3.0-0.5 MG/3 ML] 3 ml INH Q6H PRN #60 neb PRN Reason: Shortness Of Breath Apixaban [Eliquis] 5 mg PO BID #60 tablet Diltiazem [Cardizem CD] 120 mg PO DAILY #30 cap.er Metoprolol Tartrate [Lopressor] 50 mg PO Q12H #60 tablet Home Medications: Home Meds Lisinopril 40 mg PO DAILY 10/03/15 [History] Pantoprazole 40 mg PO DAILY 10/03/15 [History] atorvaSTATin [Lipitor] 20 mg PO BEDTIME 10/03/15 [History] hydroCHLOROthiazide [Hydrochlorothiazide] 25 mg PO DAILY 10/03/15 [History] metFORMIN [Glucophage XR] 1,000 mg PO BIDMEALS 10/03/15 [History] Cetirizine [ZyrTEC] 10 mg PO DAILY 01/19/19 [History] Albuterol Sulfate [Albuterol Sulfate Hfa] 8.5 gm IH Q4H PRN #2 hfa.aer.ad [Rx] Albuterol/Ipratropium [DuoNeb 3.0-0.5 MG/3 ML] 3 ml INH Q6H PRN #60 neb [Rx] Apixaban [Eliquis] 5 mg PO BID #60 tablet 01/21/19 [Rx] Diltiazem [Cardizem CD] 120 mg PO DAILY #30 cap.er 01/21/19 [Rx] Metoprolol Tartrate [Lopressor] 50 mg PO Q12H #60 tablet 01/21/19 [Rx] Oxygen Therapy Mode: Room Air Patient Handouts: Metoprolol tablets, Albuterol inhalation aerosol, Albuterol; Ipratropium solution for inhalation, Diltiazem tablets, Apixaban oral tablets, Atrial Fibrillation, [id number] Referrals: Dorina Baltazar MD [Physician] - 02/20/19 1:00 pm Babak Rubio MD [Physician] - 02/04/19 9:00 am - Discharge Summary/Plan Comment DC Time >30 min.: Yes - General Info Date of Service: 01/21/19 Admission Dx/Problem (Free Text: Admission Diagnosis/Problem Admission Diagnosis/Problem Atrial fibrillation with rapid ventricular response, cardiomyopathy with reduced ejection fraction Subjective Update: The patient has been monitored. He feels better. The patient has expressed a desire to go home. Functional Status: Reports: Pain Controlled - Review of Systems General: Reports: No Symptoms HEENT: Reports: No Symptoms Pulmonary: Reports: No Symptoms Cardiovascular: Reports: No Symptoms Gastrointestinal: Reports: No Symptoms Genitourinary: Reports: No Symptoms Musculoskeletal: Reports: No Symptoms Skin: Reports: No Symptoms Neurological: Reports: No Symptoms Psychiatric: Reports: No Symptoms - Patient Data Vitals - Most Recent: Last Vital Signs Temp 36.2 C 01/21/19 04:00 Pulse 107 H 01/20/19 23:27 Resp 12 01/21/19 07:00 BP 120/95 H 01/21/19 07:00 Pulse Ox 91 L 01/21/19 07:00 Weight - Most Recent: 115.031 kg I&O - Last 24 hours: Intake & Output 01/20/19 01/21/19 01/21/19 22:59 06:59 14:59 Intake Total 1247 500 Output Total 1010 1225 Balance 237 -725 Lab Results - Last 24 hrs: Laboratory Results - last 24 hr 01/20/19 01/20/19 01/20/19 Range/Units 07:22 11:47 20:12 WBC (4.0-11.0) K/uL RBC (4.50-5.90) M/uL Hgb (13.0-17.0) g/dL Hct (38.0-50.0) % MCV (80.0-98.0) fL MCH (27.0-32.0) pg MCHC (31.0-37.0) g/dL RDW Std Deviation (28.0-62.0) fl RDW Coeff of Jazmin (11.0-15.0) % Plt Count (150-400) K/uL MPV (7.40-12.00) fL Nucleated RBC % /100WBC Nucleated RBCs # K/uL Sodium (136-148) mmol/L Potassium (3.5-5.1) mmol/L Chloride (98-107) mmol/L Carbon Dioxide (21.0-32.0) mmol/L BUN (7.0-18.0) mg/dL Creatinine (0.8-1.3) mg/dL Est Cr Clr Drug Dosing mL/min Estimated GFR (MDRD) ml/min Glucose (74-106) mg/dL POC Glucose 189 H 161 H 129 H (60-110) mg/dL Calcium (8.5-10.1) mg/dL Magnesium (1.8-2.4) mg/dL 01/21/19 01/21/19 01/21/19 Range/Units 04:53 04:53 07:31 WBC 5.33 (4.0-11.0) K/uL RBC 4.67 (4.50-5.90) M/uL Hgb 14.6 (13.0-17.0) g/dL Hct 43.1 (38.0-50.0) % MCV 92.3 (80.0-98.0) fL MCH 31.3 (27.0-32.0) pg MCHC 33.9 (31.0-37.0) g/dL RDW Std Deviation 45.7 (28.0-62.0) fl RDW Coeff of Jazmin 14 (11.0-15.0) % Plt Count 198 (150-400) K/uL MPV 11.10 (7.40-12.00) fL Nucleated RBC % 0.0 /100WBC Nucleated RBCs # 0 K/uL Sodium 138 (136-148) mmol/L Potassium 4.3 (3.5-5.1) mmol/L Chloride 102 (98-107) mmol/L Carbon Dioxide 25.7 (21.0-32.0) mmol/L BUN 16 (7.0-18.0) mg/dL Creatinine 1.1 (0.8-1.3) mg/dL Est Cr Clr Drug Dosing 80.32 mL/min Estimated GFR (MDRD) > 60.0 ml/min Glucose 178 H (74-106) mg/dL POC Glucose 152 H (60-110) mg/dL Calcium 8.8 (8.5-10.1) mg/dL Magnesium 2.1 (1.8-2.4) mg/dL Med Orders - Current: Current Medications Acetaminophen (Tylenol) 650 mg PO Q4H PRN PRN Reason: Pain Last Admin: 01/19/19 20:51 Dose: 650 mg Albuterol/Ipratropium (Duoneb 3.0-0.5 Mg/3 Ml) 3 ml NEB Q4HRRT PRN PRN Reason: Shortness Of Breath/wheezing Last Admin: 01/20/19 23:33 Dose: 3 ml Apixaban (Eliquis) 5 mg PO BID [facility] Last Admin: 01/20/19 21:21 Dose: 5 mg Aspirin (Aspirin) 81 mg PO DAILY [facility] Last Admin: 01/20/19 10:22 Dose: 81 mg Atorvastatin Calcium (Lipitor) 20 mg PO BEDTIME [facility] Last Admin: 01/20/19 21:21 Dose: 20 mg Cetirizine HCl (Zyrtec) 10 mg PO DAILY [facility] Last Admin: 01/20/19 08:14 Dose: 10 mg Digoxin (Lanoxin) 250 mcg PO DAILY [facility] Sodium Chloride (Normal Saline) 1,000 mls @ 50 mls/hr IV ASDIRECTED [facility] Last Admin: 01/19/19 11:22 Dose: 50 mls/hr Levofloxacin/Dextrose 750 mg/ (Premix) 150 mls @ 100 mls/hr IV Q24H [facility] Last Admin: 01/20/19 13:15 Dose: 100 mls/hr Diltiazem HCl 100 mg/ Sodium (Chloride) 100 mls @ 5 mls/hr IV TITRATE [facility]; Protocol Last Titration: 01/20/19 13:30 Dose: 0 mg/hr, 0 mls/hr Insulin Aspart (Novolog) 0 unit SUBCUT TIDAC [facility]; Protocol Last Admin: 01/20/19 20:36 Dose: Not Given Metoprolol Tartrate (Lopressor) 50 mg PO Q12H [facility] Last Admin: 01/20/19 21:21 Dose: 50 mg Pantoprazole Sodium (Protonix) 40 mg PO DAILY [facility] Last Admin: 01/20/19 08:14 Dose: 40 mg Sodium Chloride (Saline Flush) 10 ml FLUSH ASDIRECTED PRN PRN Reason: Keep Vein Open Sodium Chloride (Saline Flush) 2.5 ml FLUSH ASDIRECTED PRN PRN Reason: Keep Vein Open Discontinued Medications Amlodipine Besylate (Norvasc) 10 mg PO ACBREAKFAST [facility] Aspirin (Aspirin) 324 mg PO ONETIME ONE Stop: 01/19/19 09:53 Last Admin: 01/19/19 10:00 Dose: 324 mg Digoxin (Lanoxin) 250 mcg IVPUSH Q2H [facility] Stop: 01/20/19 21:46 Last Admin: 01/20/19 20:26 Dose: Not Given Digoxin (Lanoxin) 250 mcg IVPUSH Q2H [facility] Stop: 01/20/19 23:46 Last Admin: 01/20/19 23:27 Dose: 250 mcg Diltiazem HCl (Diltiazem) 20 mg IVPUSH ONETIME ONE Stop: 01/19/19 09:53 Last Admin: 01/19/19 10:00 Dose: 20 mg Diltiazem HCl (Diltiazem) 20 mg IVPUSH ONETIME ONE Stop: 01/19/19 10:22 Last Admin: 01/19/19 10:26 Dose: 20 mg Diltiazem HCl (Diltiazem) Confirm Administered Dose 25 mg .ROUTE .STK-MED ONE Stop: 01/19/19 12:24 Last Admin: 01/19/19 17:31 Dose: Not Given Diltiazem HCl (Diltiazem) 5 mg IVPUSH ONETIME ONE Stop: 01/19/19 12:27 Last Admin: 01/19/19 12:27 Dose: 5 mg Diltiazem HCl (Diltiazem) 5 mg IVPUSH ONETIME ONE Stop: 01/19/19 13:34 Last Admin: 01/19/19 13:47 Dose: 5 mg Furosemide (Lasix) 40 mg IVPUSH NOW ONE Stop: 01/19/19 17:18 Last Admin: 01/19/19 17:32 Dose: 40 mg Furosemide (Lasix) 40 mg IVPUSH NOW ONE Stop: 01/20/19 17:49 Last Admin: 01/20/19 19:49 Dose: 40 mg Heparin Sodium (Porcine) (Heparin Sodium) 5,000 units SUBCUT Q8H [facility] Last Admin: 01/19/19 15:26 Dose: 5,000 units Hydrochlorothiazide (Hydrochlorothiazide) 25 mg PO DAILY [facility] Diltiazem HCl 125 mg/ Sodium (Chloride) 125 mls @ 5 mls/hr IV NOW ONE; Protocol Stop: 01/20/19 12:02 Last Admin: 01/19/19 17:31 Dose: Not Given Diltiazem HCl 100 mg/ Sodium (Chloride) 100 mls @ 5 mls/hr IV NOW ONE; Protocol Stop: 01/20/19 07:14 Last Titration: 01/19/19 13:33 Dose: 15 mg/hr, 15 mls/hr Magnesium Sulfate 2 gm/ Premix 50 mls @ 25 mls/hr IV ONETIME ONE Stop: 01/19/19 18:49 Last Admin: 01/19/19 17:33 Dose: 25 mls/hr Diltiazem HCl 125 mg/ Sodium (Chloride) 125 mls @ 15 mls/hr IV CONTINUOUS [facility]; Protocol Last Titration: 01/20/19 00:11 Dose: 10 mg/hr, 10 mls/hr Magnesium Sulfate 2 gm/ Premix 50 mls @ 25 mls/hr IV ONETIME ONE Stop: 01/20/19 12:19 Last Admin: 01/20/19 11:04 Dose: 25 mls/hr Iopamidol (Isovue Multipack-370 (76%)) 80 ml IVPUSH ONETIME ONE Stop: 01/20/19 19:24 Last Admin: 01/20/19 19:24 Dose: 80 ml Lisinopril (Prinivil) 40 mg PO DAILY [facility] Metformin HCl (Glucophage Xr) 1,000 mg PO BIDMEALS [facility] Polyethylene Glycol (Miralax) 17 gm PO ONETIME ONE Stop: 01/20/19 22:34 Last Admin: 01/21/19 03:15 Dose: 17 gm - Exam Quality Assessment: Denies: Supplemental Oxygen General: Reports: Alert, Oriented, Cooperative, No Acute Distress HEENT: Reports: Pupils Equal, Pupils Reactive, EOMI, Mucous Membr. Moist/Ko[place] Neck: Reports: Supple, Trachea Midline Lungs: Reports: Clear to Auscultation, Normal Respiratory Effort Cardiovascular: Reports: Regular Rate, Irregular Rhythm. Denies: Murmurs, Gallops GI/Abdominal Exam: Normal Bowel Sounds, Soft, Non-Tender, No Distention Back Exam: Reports: Normal Inspection, Full Range of Motion Extremities: Normal Inspection, Normal Range of Motion, No Pedal Edema Skin: Reports: Warm, Dry, Intact Neurological: Reports: No New Focal Deficit, Normal Gait, Normal Speech Psy/Mental Status: Reports: Alert, Normal Affect, Normal Mood
[2019-01-21] MEDS: Insulin Aspart 100 Units/ML 3 ML Pen SUBCUT SCH (08:00)
[2019-01-21] MEDS ORDERED: Digoxin 250 MCG Tab PO SCH (09:00)
[2019-01-21] MEDS: Metoprolol Tartrate 50 MG Tab PO SCH (09:11)
[2019-01-21] MEDS: Apixaban 5 MG Tab PO SCH (09:11)
[2019-01-21] MEDS: Aspirin 81 MG Tab.Chew PO SCH (09:11)
[2019-01-21] MEDS: Cetirizine 10 MG Tab PO SCH (09:11)
[2019-01-21] MEDS: Pantoprazole 40 MG Tab.CR PO SCH (09:11)
[2019-01-21 09:17] VITALS: BP 107/76
--- NOTE | 2019-01-21 13:53 | CONS ---
DATE OF CONSULTATION: DATE OF : 1970 PRIMARY CARE PHYSICIAN: None PCP REASON FOR CONSULTATION: Afib, RVR. HISTORY OF PRESENT ILLNESS: This is a 48-year-old gentleman who was admitted in the emergency room because of shortness of breath over the past week. He denied chest pain. He feels heart racing. He does have a past medical history of hypertension, hyperlipidemia as well as diabetes. He has lived in [place] for 5 years. He is from [place]. He usually has a primary care doctor in [facility]. He denied palpitation. He also feels that when he is lying down he will cough more and that was the reason he came into the emergency room. In the emergency room, he was found to have an AFib, RVR, rate of 147 and diltiazem IV drip was started. Currently, he is on Cardizem 15 mg/hour and then the patient was consulted to me. PAST MEDICAL HISTORY: Including diabetes, hypertension, hyperlipidemia, history of snoring. ALLERGIES: No known drug allergies. MEDICATIONS: Home medications including aspirin 81 mg once a day, Lipitor 20 mg once a day, amlodipine 10 mg once a day, hydrochlorothiazide 25 mg once a day, metformin 500 mg once a day, lisinopril 40 mg once a day. Current medication, he was also treated with antibiotics for possible pneumonia as well as the diltiazem IV drip. REVIEW OF SYSTEMS: Except indicated in the HPI, otherwise has been negative. EKG showed atrial fibrillation with a heart rate of 142. Echocardiogram show possibly increased RV pressure from dilated IVC and not collapsible. Ejection fraction possibly decreased in the range of 30 to 35, however. The echo study seemed to be suboptimal view. We would probably need to repeat the ultrasound with contrast. PHYSICAL EXAMINATION: VITAL SIGNS: The initial blood pressure was 130/101 and the heart rate was 142, but the current blood pressure when I talked to him is 100/70 and the heart rate ranging between 90 to 100 on diltiazem 15 mg/hour IV drip. O2 saturation is 90 on room air, respiration rate is 24, temperature 97.3. HEENT: No pallor. No jaundice. NECK: JVD positive with braxton A-wave. HEART: Normal S1, S2. I did not appreciate any significant murmur, was totally irregular, tachycardia. LUNGS: Crackle bilaterally. I did not hear wheezing. ABDOMEN: Soft, nontender. Bowel sounds are present. No hepatosplenomegaly. EXTREMITIES: Legs, no edema. INVESTIGATIONS: CBC, WBC 6, hematocrit of 45, hemoglobin of 15, platelet 208. Sodium 139, potassium 4.2, chloride 101, bicarb 25, BUN 11, and creatinine 1.1. A1 glucose 189. Liver function is normal. Magnesium 1.7. BNP 190. Troponin was negative. TSH is 1.6. ASSESSMENT AND PLAN: This is a 48-year-old male with history of hypertension, hyperlipidemia, diabetes, came in to the hospital with atrial fibrillation, rapid ventricular rate and with the symptom of shortness of breath. Echocardiogram is not a very good study, however. His LV EF seemed to be a low possibly in 30% to 35% range. He probably need to be repeated with the ultrasound of the heart with contrast and he will probably need the stresses that can be done as an outpatient. He was noted to have hypoxia when he was sleeping, so he would probably need the sleep study done as well and as well as a PFT. His thyroid function test was checked and was -1.6. Recommended to check A1c as well as the lipid panel the next day. I would probably give him Lasix IV 40 and continue the Cardizem IV drip for now. I will start him on Eliquis 5 mg twice a day because of elevated CHADS-VASc score risk for the stroke to reduce risk of stroke from Eliquis. YOSHI / SILVESTRE /[id number]
--- NOTE | 2019-01-22 10:38 | ECHO ---
EXAM DATE: 01/19/19 PATIENT'S AGE: 48 The echocardiogram report can be seen in this patient's EMR (Electronic Medical Record) in the Reports section. The report has also been scanned into PACs. [facility]
== END 2019-01-21 09:40 | disposition home or self-care (01) | DRG 201 ==
LOC: MW.ED 09:48 → MW.ICU 12:20
PROVIDERS: ADMIT Internal Medicine; ATTEND Internal Medicine
DX: I48.91 Unspecified atrial fibrillation (principal); E11.9 Type 2 diabetes mellitus without complications; I10 Essential (primary) hypertension; J18.9 Pneumonia, unspecified organism; E78.5 Hyperlipidemia, unspecified; H54.7 Unspecified visual loss; E78.00 Pure hypercholesterolemia, unspecified; E66.9 Obesity, unspecified; F17.210 Nicotine dependence, cigarettes, uncomplicated; Z68.38 Body mass index [BMI] 38.0-38.9, adult; J45.901 Unspecified asthma with (acute) exacerbation; Z79.82 Long term (current) use of aspirin; Z79.84 Long term (current) use of oral hypoglycemic drugs
CPT/HCPCS: 36415; 71045; 71045-26; 71275; 71275-26; 80048; 80053; 80061; 82962; 83036; 83735; 83880; 84443; 84484; 85025; 85027; 85379; 93005; 93306; 94640; 96365; 96376; 99285-25; A4217; A9270-GY; J1160; J1644; J1815-GY; J1940; J1956; J3475; J3490; J7030; J7040; J7620-GY; Q9967

== ENCOUNTER 2024-08-14 08:16 | Day surgery (SDC) | payer BC ==
[2024-08-14] MEDS ORDERED: Lidocaine 2% 5 ML SDV ONE (08:41)
[2024-08-14] MEDS ORDERED: propofoL 500 MG/50 ML 50 ML ONE (08:41)
[2024-08-14] MEDS: Lactated Ringers 1,000 ML IV SCH (08:45)
[2024-08-14] MEDS ORDERED: Propofol 200 MG/20 ML SDV ONE (09:19)
[2024-08-14] MEDS ORDERED: Lactated Ringers 1,000 ML IV SCH (10:00)
[2024-08-14 10:37] VITALS: BP 136/82; PULSE 62
== END 2024-08-14 10:39 | disposition home or self-care (01) ==
LOC: MW.SDS 08:16
PROVIDERS: ATTEND Surgery
DX: Z12.11 Encounter for screening for malignant neoplasm of colon (principal); E11.22 Type 2 diabetes mellitus with diabetic chronic kidney disease; I13.0 Hypertensive heart and chronic kidney disease with heart failure and stage 1 through stage 4 chronic kidney disease, or unspecified chronic kidney disease; N18.30 Chronic kidney disease, stage 3 unspecified; I50.9 Heart failure, unspecified; J45.998 Other asthma; J44.9 Chronic obstructive pulmonary disease, unspecified; I48.19 Other persistent atrial fibrillation; E11.9 Type 2 diabetes mellitus without complications; I25.10 Atherosclerotic heart disease of native coronary artery without angina pectoris; I42.9 Cardiomyopathy, unspecified; F17.290 Nicotine dependence, other tobacco product, uncomplicated; Z79.01 Long term (current) use of anticoagulants; Z79.899 Other long term (current) drug therapy; Z80.0 Family history of malignant neoplasm of digestive organs
CPT/HCPCS: 45380; 45381; 82947; J2704; J7120; 00811; J3490